=== PATIENT | female | born 2005 | race Two or more races ===

== ENCOUNTER 2025-04-15 00:26 | Emergency (ER) | payer BC ==
[~2025-04-15] VITALS: Ht 167.6 cm; Wt 54.4 kg
[2025-04-15] MEDS ORDERED: KETOROLAC TROMETHAMINE 10 MG TABLET PO ONE ×2 (02:11→02:15)
== END 2025-04-15 03:49 | disposition home or self-care (01) ==
LOC: ER 00:26 → EMR PED 00:59 → ER 00:59 → EMR PED 03:49
DX: S83.8X2A Sprain of other specified parts of left knee, initial encounter (principal); D16.22 Benign neoplasm of long bones of left lower limb